=== PATIENT | female | born 1990 | race Caucasian/White ===

== ENCOUNTER 2020-01-18 09:50 | Outpatient (REF) | payer OTHER, SELFPAY ==
[2020-01-18 16:48] LABS: CT PCR NOT DETECTED (Not Detect.); NG PCR NOT DETECTED (Not Detect.)
[2020-01-19 12:56] LABS: BV Int Neg Control Negative (Negative); BV Int Pos Control Positive (Positive)
== END 2020-01-18 09:51 | disposition home or self-care (01) ==
LOC: HO.LAB 09:50
PROVIDERS: PCP Internal Medicine; Visit Provider Obstetrics & Gynecology
DX: B37.3 Candidiasis of vulva and vagina (principal); F52.9 Unspecified sexual dysfunction not due to a substance or known physiological condition
CPT/HCPCS: 87480; 87491; 87510; 87591; 87660; 99212

== ENCOUNTER 2022-01-07 10:32 | Outpatient (REF) | payer OTHER, SELFPAY ==
[2022-01-07 18:31] LABS: CT PCR NOT DETECTED (Not Detect.); NG PCR NOT DETECTED (Not Detect.)
== END 2022-01-07 10:33 | disposition home or self-care (01) ==
LOC: HO.LNP 10:32
PROVIDERS: Visit Provider Obstetrics & Gynecology
DX: Z01.419 Encounter for gynecological examination (general) (routine) without abnormal findings (principal); R31.29 Other microscopic hematuria; R10.2 Pelvic and perineal pain; R35.0 Frequency of micturition; N94.10 Unspecified dyspareunia; F52.9 Unspecified sexual dysfunction not due to a substance or known physiological condition; Z32.02 Encounter for pregnancy test, result negative
CPT/HCPCS: 81025; 87086; 87491; 87591

== ENCOUNTER → 2022-02-04 12:42 | Outpatient (BNVA) | payer OTHER, SELFPAY | PROVIDERS: Visit Provider Obstetrics & Gynecology | DX: R31.29 Other microscopic hematuria (principal); R10.2 Pelvic and perineal pain | CPT/HCPCS: 81003; 99212 ==

== ENCOUNTER 2022-02-16 09:25 | Outpatient (REF) | payer OTHER, SELFPAY | END 2022-02-16 09:26 | disposition home or self-care (01) | LOC: HO.CT 09:25 | PROVIDERS: Visit Provider Obstetrics & Gynecology | DX: Z13.89 Encounter for screening for other disorder (principal) ==

== ENCOUNTER 2022-02-23 09:26 | Outpatient (REF) | payer OTHER, SELFPAY ==
--- NOTE | ~2022-02-23 | CT_ITS ---
EXAMINATION: CT ABDOMEN AND PELVIS WITHOUT AND WITH CONTRAST CLINICAL INFORMATION: Microscopic hematuria COMPARISON: CT scan of January 20, 2010 TECHNIQUE: Multidetector volumetric imaging was performed of the abdomen and pelvis before and after the IV administration of 85 mL of Omnipaque 350 intravenous contrast. Sagittal and coronal reformatted images were obtained on the technologist's workstation. This CT examination was performed using dose optimization techniques as appropriate, variously including the following: *Automated exposure control *Adjustment of mA and/or kV according to patient size (this includes techniques or standardized protocols for targeted exams where dose is matched to indication/reason for exam; i.e. extremities or head) *Use of iterative reconstruction technique DLP: 376 mGy-cm FINDINGS: LUNG BASES: The visualized lung bases are unremarkable. No pleural or pericardial effusion. LIVER, GALLBLADDER, AND BILIARY TREE: The liver is normal in size, shape, and attenuation. No focal hepatic lesion or biliary ductal dilatation is present. The gallbladder is unremarkable with no evidence of radiopaque gallstones, gallbladder wall thickening, or obvious pericholecystic inflammatory changes. PANCREAS: Unremarkable. No abnormal mass or peripancreatic inflammatory change is seen. SPLEEN: Unremarkable ADRENAL GLANDS: Unremarkable KIDNEYS AND URETERS: The kidneys are normal in size, shape, and attenuation. No hydronephrosis, hydroureter, or calculi seen. No perinephric stranding. The distal third of the left ureter is not opacified on this study. No suspicious masses along the region of the ureter seen in this location. This is in the region of the left adnexa. BLADDER: Unremarkable GASTROINTESTINAL TRACT: No free air or free fluid is identified. No dilated loops of large or small bowel are seen. There is diverticulosis of the sigmoid colon without evidence of acute diverticulitis. Appendix not identified with cecum lying deep within the pelvis. ABDOMINAL WALL: No significant hernia is appreciated. LYMPH NODES: No lymphadenopathy identified. VASCULAR: Unremarkable PELVIC VISCERA: The IUD is suggestive of being malpositioned with legs appearing to lie in a superior to inferior orientation rather than transverse orientation with findings suggestive of myometrial perforation and with the more superior strut appearing to be subserosal without evidence of uterine perforation. No free fluid identified. OSSEOUS STRUCTURES: No suspicious destructive bony lesions identified. 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 Findings suggestive of IUD malposition as described. Above findings were called to referring provider's office by radiology telecommunications facility examiner. Fleischner guidelines were followed.
[2022-02-23] MEDS: iohexoL 350 MG/ML 100 ML INFUS..BTL IV (10:12)
== END 2022-02-23 09:27 | disposition home or self-care (01) ==
LOC: HO.CT 09:26
PROVIDERS: Visit Provider Obstetrics & Gynecology
DX: R31.29 Other microscopic hematuria (principal)
CPT/HCPCS: 74178; Q9967

== ENCOUNTER → 2022-03-04 12:19 | Outpatient (BNVA) | payer OTHER, SELFPAY | PROVIDERS: Visit Provider Obstetrics & Gynecology | DX: Z32.02 Encounter for pregnancy test, result negative (principal); Z30.433 Encounter for removal and reinsertion of intrauterine contraceptive device; R31.29 Other microscopic hematuria; T83.32XA Displacement of intrauterine contraceptive device, initial encounter | CPT/HCPCS: 58300; 58301; 81025; 99212; J7298 ==

== ENCOUNTER → 2022-07-06 11:49 | Outpatient (BNVA) | payer OTHER, SELFPAY | PROVIDERS: Visit Provider Obstetrics & Gynecology | DX: Z30.432 Encounter for removal of intrauterine contraceptive device (principal); R68.82 Decreased libido | CPT/HCPCS: 99212 ==

== ENCOUNTER 2022-08-13 12:00 | Outpatient (REF) | payer OTHER, SELFPAY ==
[2022-08-15 15:28] LABS: CT PCR NOT DETECTED (Not Detect.); NG PCR NOT DETECTED (Not Detect.)
== END 2022-08-13 12:01 | disposition home or self-care (01) ==
LOC: HO.LNP 12:00
PROVIDERS: Visit Provider Obstetrics & Gynecology
DX: Z30.433 Encounter for removal and reinsertion of intrauterine contraceptive device (principal)
CPT/HCPCS: 0353U; 58300; 58301; 81025; J7300

== ENCOUNTER 2022-12-30 13:44 | Outpatient (AMB) | payer OTHER, SELFPAY ==
--- NOTE | 2022-12-30 13:45 | MHC.OFFVIS ---
Intake Vital Signs 12/30/22 13:47 Height 4 ft 11 in Weight 114 lb 10.246 oz BMI 23.2 BP 110/68 Intake Visit Reasons: dysuria, vaginal infection Cotton Gin Yard Supervisor Required: No Information Interpreted: non-clinical & clinical Varnish Maker: Varnish Maker Present (Angela Kurt CONROY) Accompanied by: Self / Same As Patient Allergies shrimp Allergy (Unknown, Verified 12/30/22 13:48) SWELLING Seafood Allergy (Severe, Uncoded 12/30/22 13:48) ANAPHYLAXIS shellfish Allergy (Unknown, Uncoded 12/30/22 13:48) anaphylaxis Is last menstrual period known: No (mirena) HPI HPI Comments History of Present Illness Details Presenting complaining of dysuria and urinary urgency over the last 3 days associated with vaginal discharge with no itching or odor PFSH Medical History Anxiety Asthma Surgical History H/O LEEP History of ear surgery Family History Mother Breast cancer Social History Alcohol intake: never Sexual orientation: Straight/Heterosexual Gender identity: Female Female Reproductive History Menstrual Age of Menarche: 12 Review of Systems Const All systems reviewed & are unremarkable except as noted in HPI and below Physical Exam Vital Signs: Last Vital Signs BP 110/68 12/30/22 13:47 BMI result Body Mass Index 23.2 General: Yes no CVA tenderness External Female Exam: normal external appearance and normal appearance of the urethra Speculum Exam - Vagina: normal appearance of the vagina, normal palpation, no lesions and no masses Speculum Exam - Cervix: normal appearance of the cervix, normal palpation, no lesions, no masses and nontender Bimanual exam- vagina & uterus: normal bimanual exam, normal palpation, uterine size normal, normal palpation, uterine shape normal, No Cervical tenderness present and non-tender Bimanual Exam- Adnexa, other: normal adnexae Back/Spine/Pelvis Back: no CVA tenderness Assessment & Plan Assessment & Plan (1) UTI (urinary tract infection): Code(s): N39.0 - Urinary tract infection, site not specified Plan: Urine dip showed microscopic hematuria and leukocytes, will send urine for culture to treat with Macrobid 100 mg p.o. b.i.d. for 5 days. Instructions given the patient to call in case of persistent or worsening of her symptoms, flank pain, temperature above 100.4 and to schedule a 2 week follow-up appointment for repeat urine dip to make sure microscopic hematuria resolves (2) Vaginal discharge: Code(s): N89.8 - Other specified noninflammatory disorders of vagina Plan: BV panel with GC/CT collected will check the results and treat accordingly. Medications: New nitrofurantoin monohyd/m-cryst 100 mg (Macrobid) 100 mg PO BID 10 caps 0RF 5 days Coding Level of Care Code Est Pt Level 3 (15548) Diagnoses UTI (urinary tract infection) N39.0 Vaginal discharge N89.8
[2022-12-30 13:47] VITALS: BP 110/68; BMI 23.2
== END 2022-12-30 13:58 | disposition home or self-care (01) ==
LOC: HO.HWS 13:44
PROVIDERS: Visit Provider Obstetrics & Gynecology
DX: N39.0 Urinary tract infection, site not specified (principal); N89.8 Other specified noninflammatory disorders of vagina
CPT/HCPCS: 99213

== ENCOUNTER 2022-12-30 13:44 | Outpatient (REF) | payer OTHER, SELFPAY ==
[2022-12-30 17:31] LABS: CT PCR NOT DETECTED (Not Detect.); NG PCR NOT DETECTED (Not Detect.)
[2022-12-31 11:11] LABS: BV Int Neg Control Negative (Negative); BV Int Pos Control Positive (Positive)
== END 2022-12-30 13:45 | disposition home or self-care (01) ==
LOC: HO.LNP 13:44
PROVIDERS: Visit Provider Obstetrics & Gynecology
DX: R31.29 Other microscopic hematuria (principal); R30.0 Dysuria; N89.8 Other specified noninflammatory disorders of vagina; N39.0 Urinary tract infection, site not specified
CPT/HCPCS: 0353U; 87086; 87480; 87510; 87660; 99212

== ENCOUNTER 2023-07-28 08:59 | Outpatient (REF) | payer OTHER, SELFPAY ==
[2023-07-28 18:20] LABS: CT PCR NOT DETECTED (Not Detect.); NG PCR NOT DETECTED (Not Detect.)
[2023-07-29 10:59] LABS: BV Int Neg Control Negative (Negative); BV Int Pos Control Positive (Positive)
== END 2023-07-28 09:00 | disposition home or self-care (01) ==
LOC: HO.LNP 08:59
PROVIDERS: Visit Provider Obstetrics & Gynecology
DX: Z01.419 Encounter for gynecological examination (general) (routine) without abnormal findings (principal); Z11.3 Encounter for screening for infections with a predominantly sexual mode of transmission; N89.8 Other specified noninflammatory disorders of vagina; F52.9 Unspecified sexual dysfunction not due to a substance or known physiological condition
CPT/HCPCS: 0353U; 87480; 87510; 87660; 99212; 99395

== ENCOUNTER 2023-07-28 08:59 | Outpatient (AMB) | payer OTHER, SELFPAY ==
[2023-07-28 09:22] VITALS: BP 110/66; BMI 25.2
--- NOTE | 2023-07-28 09:22 | MHC.OFFVIS ---
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 Complaining of decreased libido over the last few years and vaginal discharge since ParaGard IUD insertion not associated with any vulvovaginal irritation and or foul odor. The patient is interested in STD screening Last Pap/HPV negative in 04/09 [facility] Medical History Anxiety Asthma Surgical History H/O LEEP History of ear surgery Family History Mother Breast cancer Social History Alcohol intake: never Sexual orientation: Straight/Heterosexual Gender identity: Female Female Reproductive History Menstrual Age of Menarche: 12 Date of last menstrual period: 07/13/23 control method: progestin IUCD Total pregnancies: 3 Full term: 2 Ab spontaneous: 1 Date of last pap smear: 04/16/19 Review of Systems Const All systems reviewed & are unremarkable except as noted in HPI and below Card Reports as per HPI Resp Reports as per HPI GI Reports as per HPI and Reports no additional complaints Reports as per HPI Physical Exam Vital Signs: Last Vital Signs BP 110/66 07/28/23 09:22 BMI result Body Mass Index 25.2 Const General: cooperative, healthy appearing and comfortable Chest Chest palpation & inspection: normal inspection of the chest and normal palpation of entire chest wall Breast/axilla inspection: normal inspection of the breasts and normal inspection of the axillae Breast/axilla palpation: normal palpation of the breasts, normal palpation of the axillae and no axillary lymphadenopathy Resp Effort & Inspection: normal respiratory effort Auscultation: clear to auscultation bilaterally Percussion: percussion normal Cardio Palpation: normal PMI Rate: regular rate Rhythm: regular rhythm Heart sounds: no murmurs and no rubs Peripheral pulses: Peripheral pulses 2+ throughout GI Inspection: Yes normal to inspection Palpation (GI): Soft to palpation, nontender, no guarding, not rigid and No hepatosplenomegaly present Percussion: Yes normal to percussion Auscultation: normal bowel sounds Rectal Exam - Female: deferred General: Yes bladder normal to palpation External Female Exam: No lesion Speculum Exam - Vagina: normal appearance of the vagina, normal palpation, normal vaginal discharge and not erythematous Speculum Exam - Cervix: normal appearance of the cervix and normal palpation Bimanual exam- vagina & uterus: normal bimanual exam, normal palpation, uterine size normal, bladder normal to palpation, consistency normal and normal palpation Bimanual Exam- Adnexa, other: normal adnexae, no masses and no tenderness Assessment & Plan Assessment & Plan (1) Well woman exam: Code(s): Z01.419 - Encounter for gynecological examination (general) (routine) without abnormal findings Category: Medical Plan: Cotesting not indicated this year. Counseled the patient about the recommended dietary allowance of 1000 mg of Calcium & 600 IU of vitamin D. The patient was instructed to perform monthly self-breast exams and to schedule an annual exam in a year; All questions answered and the patient verbalized understanding. Instructed the patient to schedule annual exam in a year (2) Sexual dysfunction in females: Code(s): F52.9 - Unspecified sexual dysfunction not due to a substance or known physiological condition Category: Medical Plan: Discussed with the patient different causes of sexual dysfunction, refer to sexual dysfunction clamp at [facility] (3) Screen for STD (sexually transmitted disease): Code(s): Z11.3 - Encounter for screening for infections with a predominantly sexual mode of transmission Category: Medical Plan: STD screening tests done includes: BV panel for trichomonas, GC/CT will send patient for serology std screening for HIV, RPR, Hep b s Ag, HepC Ab. Instructions given the patient to schedule a follow-up appointment for repeat serology screen in 6 months for possible false negatives. (4) Vaginal discharge: Code(s): N89.8 - Other specified noninflammatory disorders of vagina Category: Medical Plan: GC/CT and BV panel collected will check the results and treat accordingly Orders: Orders CT NG by PCR Today N89.8 - Other specified noninflammatory disorders of vagina Bacterial Vaginosis Panel Today N89.8 - Other specified noninflammatory disorders of vagina Coding Level of Care Code Est Pt Level 3 (56038) Est Pt Prev Care 18-39y(39566) Diagnoses Well woman exam Z01.419 Sexual dysfunction in females F52.9 Screen for STD (sexually transmitted disease) Z11.3 Vaginal discharge N89.8
== END 2023-07-28 09:54 | disposition home or self-care (01) ==
PROVIDERS: Visit Provider Obstetrics & Gynecology
DX: Z01.419 Encounter for gynecological examination (general) (routine) without abnormal findings (principal); N89.8 Other specified noninflammatory disorders of vagina; F52.9 Unspecified sexual dysfunction not due to a substance or known physiological condition
CPT/HCPCS: 99213; 99395

== ENCOUNTER 2025-01-14 14:13 | Outpatient (REF) | payer OTHER, SELFPAY ==
[2025-01-15 04:50] LABS: Bacterial Vaginosis PCR NEGATIVE (Negative); Candida Group PCR NOT DETECTED (Not Detect); Candida glab krusei PCR NOT DETECTED (Not Detect); Trichomonas vaginalis PCR NOT DETECTED (Not Detect)
[2025-01-15 05:20] LABS: CT PCR NOT DETECTED (Not Detect.); NG PCR NOT DETECTED (Not Detect.)
== END 2025-01-14 14:14 | disposition home or self-care (01) ==
LOC: HO.LNP 14:13
PROVIDERS: Visit Provider Obstetrics & Gynecology
DX: Z01.419 Encounter for gynecological examination (general) (routine) without abnormal findings (principal); N89.8 Other specified noninflammatory disorders of vagina; Z20.2 Contact with and (suspected) exposure to infections with a predominantly sexual mode of transmission
CPT/HCPCS: 81515; 87491; 87591; 87626; 88175; 99395

== ENCOUNTER 2025-01-14 14:13 | Outpatient (AMB) | payer OTHER, SELFPAY ==
--- NOTE | 2025-01-14 14:24 | MHC.OFFVIS ---
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 Complaining of vaginal discharge not associated with foul odor or itching Last Pap/HPV was many years ago PFSH Medical History Anxiety Asthma Surgical History H/O LEEP History of ear surgery Family History Mother Breast cancer Diabetes HTN (hypertension) Maternal Grandmother Diabetes HTN (hypertension) Social History Household Members: Spouse and Children Housing: Apartment Alcohol intake: never e-Cigarette/Vaping Use: Currently Using Current occupational status: employed Current occupation: [employer] Sexually active: Yes Sexual orientation: Straight/Heterosexual Gender identity: Female Female Reproductive History Menstrual Age of Menarche: 12 Date of last menstrual period: 12/21/24 control method: progestin IUCD Total pregnancies: 3 Full term: 2 Number of Living Children: 2 Review of Systems Const All systems reviewed & are unremarkable except as noted in HPI and below Card Reports as per HPI Resp Reports as per HPI GI Reports as per HPI and Reports no additional complaints Reports as per HPI Physical Exam Vital Signs: BMI result Body Mass Index 23.2 Const General: cooperative, healthy appearing and comfortable Chest Chest palpation & inspection: normal inspection of the chest and normal palpation of entire chest wall Breast/axilla inspection: normal inspection of the breasts and normal inspection of the axillae Breast/axilla palpation: normal palpation of the breasts, normal palpation of the axillae and no axillary lymphadenopathy Resp Effort & Inspection: normal respiratory effort Auscultation: clear to auscultation bilaterally Percussion: percussion normal Cardio Palpation: normal PMI Rate: regular rate Rhythm: regular rhythm Heart sounds: no murmurs and no rubs Peripheral pulses: Peripheral pulses 2+ throughout GI Inspection: Yes normal to inspection Palpation (GI): Soft to palpation, nontender, no guarding, not rigid and No hepatosplenomegaly present Percussion: Yes normal to percussion Auscultation: normal bowel sounds Rectal Exam - Female: deferred General: Yes bladder normal to palpation External Female Exam: No lesion Speculum Exam - Vagina: normal appearance of the vagina, normal palpation, normal vaginal discharge and not erythematous Speculum Exam - Cervix: normal appearance of the cervix, normal palpation and Other cervical findings present (IUD string in place) Bimanual exam- vagina & uterus: normal bimanual exam, normal palpation, uterine size normal, bladder normal to palpation, consistency normal and normal palpation Bimanual Exam- Adnexa, other: normal adnexae, no masses and no tenderness Assessment & Plan Assessment & Plan (1) Well woman exam: Code(s): Z01.419 - Encounter for gynecological examination (general) (routine) without abnormal findings Category: Medical Plan: Cotesting done. Counseled the patient about the recommended dietary allowance of 1000 mg of Calcium & 600 IU of vitamin D. The patient was instructed to perform monthly self-breast exams and to schedule an annual exam in a year; All questions answered and the patient verbalized understanding. Instructed the patient to schedule annual exam in a year (2) Vaginal discharge: Code(s): N89.8 - Other specified noninflammatory disorders of vagina Category: Medical Plan: GC/CT with BV panel collected will check the results and treat accordingly Coding Level of Care Code Est Pt Prev Care 18-39y(62440) Diagnoses Well woman exam Z01.419 Vaginal discharge N89.8
[2025-01-14 14:27] VITALS: BP 108/64; BMI 23.2
--- OUTSIDE RECORDS SUMMARY | 2025-01-14 17:52 | XMS_ITS | Encounter Summary ---
Author Organization [employer] Address [address] [place] [address] Care Team Providers Care Rn First Assistant Name Role Phone Unavailable Primary Care Provider Unavailabl e Encounter Details Date Type Department Care Team (Latest Contact Info) Description 03/12/2020 Abstract C CONVERSIONS Dental, Provider, DDS Social History Tobacco Use Types Packs/Day Years Used Date Smoking Tobacco: Never Assessed Comments Unknown Sex and Gender Information Value Date Recorded Sex Assigned at Female 01/18/2022 10:18 AM EDT Legal Sex Female 10:18 AM EDT Gender Identity Female 01/18/2022 10:18 AM EDT Sexual Orientation Straight 01/18/2022 10 :18 AM EDT documented as of this encounter Plan of Treatment Not on file documented as of this encounter Visit Diagnoses Not on filedocumented in this encounter
--- OUTSIDE RECORDS SUMMARY | 2025-01-14 17:52 | XMS_ITS | Clinical Summary ---
Author Organization [employer] Address [address] [place] [address] Care Team Providers Care Jewelry Department Supervisor Name Role Phone Unavailable Primary Care Provider Unavailabl e Social History Tobacco Use Types Packs/Day Years Used Date Smoking Tobacco: Never Assessed Comments Unknown Sex and Gender Information Value Date Recorded Sex Assigned at Female 01/18/2022 10:18 AM EDT Legal Sex Female 10:18 AM EDT Gender Identity Female 01/18/2022 10:18 AM EDT Sexual Orientation Straight 01/18/2022 10 :18 AM EDT Plan of Treatment Health Maintenance Due Date Last Done Comments Depression Screening 1991 Disability Screening 1991 Alcohol/Substance Use Screening 2003 Tobacco Screening 2003 Family Planning (PISQ) 2006 Pap Smear 01/23/2012 Cervical Cancer Screening 2021 HPV/Cotest 2021 DTaP/Tdap/Td Vaccines (7 - Td or Tdap) 06/14/2021 06/15/2011, 06/04/2004, 08/06/1994, Additional history exists COVID-19 Vaccine ( season) 2024 Influenza Vaccine (#1) 2024 Zoster Vaccines (1 of 2) 2041 RSV Patients and Patients Aged 60 years or older (1 - 1-dose 75+ series) 2066 HIB Vaccines Completed 06/16/1992, 11/19, 1991, Additional history exists IPV Vaccines Completed 06/16/1992, 08/19, 1991, Additional history exists Hepatitis B Vaccines Completed 09/08/1992, 05/12/1992, 02/25/1992 Hepatitis A Vaccines Completed 07/06/2007, 04/28/19 07 HPV Vaccines Completed 02/19/2008, 06/19, 04/28/2006 Meningococcal Vaccine Completed 10/03/2009 Pneumococcal Vaccine: Pediatrics (0 to 5 Years) and At-Risk Patients (6 to 49) Years Aged Out 06/15/2011 No longer eligible based on patient's age to complete this topic Meningococcal B Vaccine Aged Out No l onger eligible based on patient's age to complete this topic RSV under 20 months Aged Out No longe r eligible based on patient's age to complete this topic Rotavirus Vaccines Aged Out No longer eligible based on patient's age to complete this topic
--- OUTSIDE RECORDS SUMMARY | 2025-01-14 17:52 | XMS_ITS | Data Portability ---
Author Organization [facility] [id number] Address [address] [place] [address] Assessment No assessment recorded. Plan of Treatment Reminders Order Date Submit Date Provider Last Modified By Organization Details Last Modified Time Details Appointments None record ed. Lab None record ed. Referral None record ed. Procedures None record ed. Surgeries None record ed. Imaging None record ed. Medication Orders None record ed. Patient TargetsNo targets recorded. Patient InstructionsNo instructions recorded. Reason for Referral None Reported. Procedures Surgical History Date Name Laterality Status Provider Name and Address Organization Details Recorded Time OC-UDS Send Out Template NON DOT completed JUVENAL CAVAZOS [facility] 10/06/2022 14:47:26 Imaging Results None recorded. Procedure Notes None recorded. Medical Equipment None Reported. Medications Name Sig Start Date Stop Date Status Note LastModified by Organization Details LastModified Time triamcinolone acetonide 0.1 % topical cream active Not Available Not Available Not Available ondansetron 4 mg disintegrating tablet DISSOVLE 1 TABLET BY MOUTH EVERY 8 HOURS active Not Available Not Available No t Available ParaGard T 380A 380 square mm intrauterine device active Not Available Not Available Not Available oxycodone 5 mg tablet TAKE 1 TABLET EVERY 4 TO 6 HOURS NEEDED FOR SEVERE PAIN SCALE 7-10 PARTIAL FILL UPON REQUEST active Not Available Not Available No t Available nitrofurantoin monohydrate/ma crocrystals 100 mg capsule TAKE 1 CAPSULE BY MOUTH TWICE A DAY FOR 5 DAYS active Not Available Not Available No t Available Vitals None Recorded Social History None recorded. Functional Status None recorded. Mental Status None recorded. Family History Nothing Reported. Medical History No medical history recorded. Gynecological HistoryNo gynecological history recorded. 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 [facility] [address] [place] [address] 10/06/2022 13:26:36 10/06/2022 14:53:36 History and physical examination, occupation [id number] Z02.1 Health Concerns Section Related Observation LastModified by Organization Detai ls LastModified Time None Recorded Concern Status LastModified by Organization Details LastModified Time None Recorded Advance Directives Directive None Recorded Payers Insurance Date Sequence Insurance Name Policy Number Policy Shultz Covered Member ID Shultz Member ID Guarantor Name 10/06/2022 1 [facility] NET PLAN (MEDICAID HMO) [employer] June Huff [id number] June Huff 10/11/2022 OC-ESCREEN Generic Employer [employer] June Huff OBGyn Episode No OBEpisode recorded.
--- OUTSIDE RECORDS SUMMARY | 2025-01-14 17:53 | XMS_ITS | Clinical Summary ---
Author Organization [facility] Address [address] [place] [address] Phone Care Team Providers Care Masonry Installer Name Role Phone Brianna Mcelroy MD Primary Care Prov ider Allergies Active Allergy Reactions Criticality Noted Date Comments Shellfish Derived Anaphylaxis High 11/14/2015 Medications budesonide-formo teroL (SYMBICORT) 80-4.5 mcg/actuation inhaler Inhale 2 Puffs into the lungs 2 times daily. 4 Active copper (ParaGard T 380A) 380 square mm IUD 3 Active hydrocortisone 2.5 % lotion Apply to affected area 1-2 times a day for 1 week. Apply sparingly. 0 Active loratadine (CLARITIN) 10 mg tablet Take 1 Tab by mouth daily as needed for Allergies. 9 Active albuterol HFA (PROAIR HFA ; PROVENTIL HFA ; VENTOLIN HFA) 90 mcg/actuation inhalerIndicatio ns:Moderate persistent asthma without complication Inhale 2 puffs by mouth every 6 (six) hours if needed for wheezing. 6.7 g 1 5 Active albuterol 2.5 mg /3 mL (0.083 %) nebulizer solution Take 3 mL (2.5 mg total) by nebulization every 6 (six) hours if needed for wheezing or shortness of breath. 150 mL 5 Active riboflavin (VITAMIN B2) 400 mg tablet Take 1 tablet (400 mg total) by mouth 1 (one) time each day. 30 tablet 11 5 Active magnesium oxide 500 mg magnesium tablet Take 1 tablet by mouth at bedtime. 30 tablet 11 5 Active tiZANidine (ZANAFLEX) 2 mg tablet Take 1 tablet (2 mg total) by mouth at bedtime. 30 tablet 3 5 Active Active Problems Problem Noted Date Diagnosed Date Chronic nonintractable headache 04/09/2024 Anxiety 02/03/2024 COVID 08/04/2023 IBS (irritable bowel syndrome) 01/02/2016 Allergic rhinitis 12/05/2015 Eczema 11/14/2015 Moderate persistent asthma without complication 11/14/2015 Encounters Date Type Department Care Team Description 10/22/2024 9:00 AM EDT Telemedicine [address] [place] [address] Eryn Selby, [place] Chronic nonintractable headache, unspecified headache type from Last 3 Months Immunizations Immunization Administration Dates Next Due DTaP (Infanrix) 6wks to less than 7yo ,06/16/1992,1991,06/14,1991 [id number] (Pentacel) 2mo to less than 5yo 06/16/1992,1991,1991,03/16 HPV, Quadrivalent 02/19/2008,07/06/2007,04/28/19 07 Hepatitis A Pediatric (Havri x; Vaqta) 12mo to less than 19yo 07/06/2007,04/28/2006 Hepatitis B Pediatric (Enger ix B; Recombivax HB) to less than 20 yo 09/08/1992,05/12/1992,02/25/1992 IPV Inactivated polio (Ipol) 6wks and older 06/16/1992,1991,1991,03/16 MMR, measles mumps and rubel la Live (Priorix; M-M-R II) 12mo and older 03/08/1995,02/25/1992 Measles 1991 Meningococcal MCV4P 10/03/2009 Pneumococcal polysaccharide 23 valent (Pneumovax 23) 2yo and older 06/15/2011 Td Tetanus diptheria (Tdvax) 7yo and older 06/04/2004 Tdap Tetanus diptheria acell ular pertussis (Boostrix; Adacel) 7yo and older 06/15/2011 Varicella live (Varivax) 12m o and older 04/20/2002 Surgical History Surgery Date Site/Laterality Comments OTHER SURGICAL HISTORY PROCEDURE: DENIES PREVIOUS SURGERY Medical History Medical History Date Comments Eczema 11/14/2015 DX:Eczema Uncomplicated asthma 11/14/2015 DX:Uncompli cated asthma Allergic rhinitis 12/05/2015 DX:Allergic rh initis IBS (irritable bowel syndrome) 01/02/2016 D X:IBS (irritable bowel syndrome) Anxiety DX:Anxiety Family History Medical History Relation Name Comments Asthma Brother Thyroid cancer Maternal Grandmother Asthma Mother Skin cancer Mother Relation Name Status Comments Brother Maternal Grandmother Mother Social History Tobacco Use Types Packs/Day Years Used Date Smoking Tobacco: Never Smokeless Tobacco: Never Tobacco Cessation:Counseling Given: Not Answered Alcohol Use Standard Drinks/Week Comments Not Currently 0 (1 standard drink = 0.6 oz pur e alcohol) Housing Instability Answer Date Recorde d Are you worried that in the next 2 months you may not have stable housing? No 04/09/2024 Food Access & Nutrition Answer Date Rec orded Do you have access to a vari ety of food including fruits and vegetables? Yes 04/09/2024 Health Literacy Answer Date Recorded How often do you need to hav e someone help you when you read instructions, pamphlets, or other written material from your doctor or pharmacy? Never 04/09/2024 Caregiver: How often do you need to have someone help you when you read instructions, pamphlets, or other written material from your doctor or pharmacy? Not on file 04/09/2024 Financial Risk Answer Date Recorded How hard is it for you to pa y for the very basics like food, housing, medical care, and air conditioning / heating? Not very hard 04/09/2024 Transportation Answer Date Recorded Has the lack of transportati on kept you from meetings, work, or from getting things needed for daily living? No Has the lack of transportati on kept you from medical appointments or from getting medications? No 04/09/2024 Social Isolation Answer Date Recorded How often do you feel lonely or isolated from th ose around you? Never 04/09/2024 Food Risk Answer Date Recorded Within the past 12 months we worried whether our food would run out before we got money to buy more. Never true 04/09/2024 Within the past 12 months th e food we bought just didn't last and we didn't have money to get more. Never true 04/09/2024 Dependent Care Answer Date Recorded Do you need help finding or paying for care for your loved ones. For example, exceptional children teacher or elderly care for an older adult? No 04/09/2024 Education Answer Date Recorded Do you think completing more education or training, like finishing a GED, going to college, or learning a trade, would be helpful for you? No 04/09/2024 Employment and Income Answer Date Recor ded During the last four weeks, have you been actively looking for work? No 04/09/2024 Living Situation Answer Date Recorded What is your living situation? Unrecognized valu e 04/09/2024 Comments No Sex and Gender Information Value Date Recorded Sex Assigned at Not on file Legal Sex Female 4:32 PM EST Gender Identity Not on file Sexual Orientation Not on file Obstetrics History Last Filed Vital Signs Vital Sign Reading Time Taken Comments Blood Pressure 99/62 04/09/2024 3:37 PM EST Pulse 97 04/09/2024 3:37 PM EST Temperature 36.2 C (97.1 F) 04/09/2024 3:37 PM EST Respiratory Rate 12 04/09/2024 3:37 PM EST Oxygen Saturation 100% 03/06/2024 6:49 PM EST Inhaled Oxygen Concentration - - Weight 52.3 kg (115 lb 6.4 oz) 04/09/2024 3:37 P M EST Height 149.9 cm (4' 11 ) 04/09/2024 3:37 PM EST Body Mass Index 23.31 04/09/2024 3:37 PM EST Plan of Treatment Health Maintenance Due Date Last Done Comments Cervical Cancer Screening: Pap Smear 01/23/2012 Pneumococcal Vaccine: Pediatrics (0 to 5 Years) and At-Risk Patients (6 to 49 Years) (2 of 2 - PCV) 06/14/2012 06/15/2011 DTaP,Tdap,and Td Vaccines (7 - Td or Tdap) 06/14/2021 06/15/2011, 06/04/2004, 08/06/1994, Additional history exists Influenza Vaccine (#1) 2024 Social Influencers of Health Screening 04/09/2025 04/09/2024 RSV Immunization Adult Patients (1 - 1-dose 75+ series) 2066 HIB Vaccines Completed 06/16/1992, 11/19, 1991, Additional history exists IPV Vaccines Completed 06/16/1992, 05/20, 1991, Additional history exists Hepatitis B Vaccines Completed 09/08/1992, 05/12/1992, 02/25/1992 MMR Vaccines Completed 03/08/1995, 02/25/1992 Varicella Vaccines Aged Out 04/20/2002 No longer eligible based on patient's age to complete this topic Hepatitis A Vaccines Completed 07/06/2007, 04/28/19 07 HPV Vaccines Completed 02/19/2008, 06/19, 04/28/2006 Meningococcal ACWY Vaccine Completed 10/03/2009 COVID-19 Vaccine Discontinued 07/08/2020, 06/10/2020 Depression Screening Completed 05/29/2024 HIV Screening Discontinued Hepatitis C Screening Discontinued Meningococcal B Vaccine Aged Out No l onger eligible based on patient's age to complete this topic RSV Immunization Patients Under 20 months Aged Out No longer eligible based on patient's age to complete this topic Insurance PLAN Care Teams Masonry Installer Relationship Specialty Start Date End Date Brianna Mcelroy MD [address] [place] [phone] PCP - General Internal Medicine 10/19/21
== END 2025-01-14 14:55 | disposition home or self-care (01) ==
LOC: HO.HWS 14:14
PROVIDERS: Visit Provider Obstetrics & Gynecology
DX: Z01.419 Encounter for gynecological examination (general) (routine) without abnormal findings (principal); N89.8 Other specified noninflammatory disorders of vagina
CPT/HCPCS: 99395; 99459